=== PATIENT | female | born 1960 | race Caucasian/White ===

== ENCOUNTER → 2022-04-12 | Day surgery (SDC) | payer BC ==
--- NOTE | 2022-04-12 12:39 | RAD REPORT ---
EXAM DESCRIPTION: US - Breast Core BX w/US Guidance - 04/12/2022 10:34 am CLINICAL HISTORY: Right breast mass COMPARISON: 04/08/2022 TECHNIQUE: The risks, benefits alternatives to the procedure were explained to the patient and infor med consent obtained. Skin and subcutaneous tissues anesthetized with lidocaine. Under sonographic guidance, 3 x 14 gauge vacuum assisted core biopsies of the mass within the right b reast obtained. 2 centimeter specimens taken. Tissue given to pathology. Subsequently a localizing clip was placed into the mass. Patient experienced no immediate complication IMPRESSION: Vacuum assisted core biopsies of the right breast mass
--- NOTE | 2022-04-12 12:40 | RAD REPORT ---
EXAM DESCRIPTION: US - Biopsy Lymph Node - 04/12/2022 10:48 am CLINICAL HISTORY: RT AXILLA MASS COMPARISON: No comparisons FINDINGS: Preoperative diagnosis: Enlarged right axillary lymph node. Post operative diagnosis: Same. Conscious Sedation: None Fluoroscopy time: None Contrast used: None Estimated blood loss: Minimal Specimens:3x 18 gauge specimens obtained. IMPRESSION: Technically successful ultrasound-guided core biopsy of an enlarged right axillary lymph node.
== END ==
LOC: DS 08:00
PROVIDERS: ATTEND Surgery
DX: C50.411 Malignant neoplasm of upper-outer quadrant of right female breast (principal); N63.31 Unspecified lump in axillary tail of the right breast; Z17.0 Estrogen receptor positive status [ER+]
CPT/HCPCS: 19083; 38505; 76942; 88305

== ENCOUNTER 2022-04-24 05:57 | Day surgery (SDC) | payer BC ==
[2022-04-23 09:44] LABS: Absolute Lymphocytes (CBC) 2.9 K/uL (0.7-4.9); Hematocrit 40.6 % (36.0-45.0); Lymphocytes % 44.5 % (15.3-44.8); MCV 100.1 fL (80-100); MPV 10.6 fL (7.6-11.3); RBC Red Blood Cell Count 4.06 M/uL (3.86-4.86)
[2022-04-23 10:01] LABS: Potassium 4.3 mmol/L (3.5-5.1)
[2022-04-23 10:30] LABS: Blood Morphology Comment NOT SEEN (NOT SEEN); Platelet Estimate ADEQ; Platelets, Giant PRESENT; White Blood Cell Scan OK (OK)
--- NOTE | 2022-04-23 12:49 | EKG ---
Test Date: 2022-04-23 Test Time: 08:37:24 Supervisor Payroll: KEENAN MEASUREMENT RESULTS: Intervals: Rate: 48 MN: 156 QRSD: 84 QT: 426 QTc: 380 [place]: P: 81 MN: 156 QRS: 85 T: 80 INTERPRETIVE STATEMENTS: Marked sinus bradycardia Septal infarct, age undetermined Abnormal ECG No previous ECG available for comparison Electronically Signed On 04-23-22 12:47:48 REIMBURSEMENT DIRECTOR by Wesley Gregorio
[2022-04-24] MEDS ORDERED: CEFAZOLIN SODIUM 1 GM/VIAL ONE (06:14)
[2022-04-24] MEDS ORDERED: NA CHLORIDE 0.9% 1,000 ML ONE ×2 (06:15→10:31)
[2022-04-24] MEDS ORDERED: FENTANYL CITR 100 MCG/2 ML ONE ×2 (06:30→08:25)
[2022-04-24] MEDS ORDERED: EPINEPHRINE/PF 1 MG/ML AMP ONE (06:30)
[2022-04-24] MEDS ORDERED: propofoL 200 MG/20 ML VIAL IV ONE ×2 (06:30→08:24)
[2022-04-24] MEDS ORDERED: BUPIVACAINE 0.25% PF 10 ML VIAL ONE (06:30)
[2022-04-24] MEDS ORDERED: LIDOCAINE 1% MPF 5 ML VIAL ONE (06:30)
[2022-04-24] MEDS ORDERED: dexAMETHasone 10 MG/ML VIAL ONE (06:30)
[2022-04-24] MEDS ORDERED: ROCURONIUM 50 MG/5 ML VIAL IV ONE (08:25)
[2022-04-24] MEDS ORDERED: MIDAZOLAM HCL 2 MG/2 ML INJ ONE (08:25)
[2022-04-24] MEDS ORDERED: LIDOCAINE 2% MPF 5 ML VIAL ONE (08:27)
[2022-04-24] MEDS ORDERED: ONDANSETRON 4 MG/2 ML VIAL ONE ×2 (08:27→11:09)
[2022-04-24] MEDS: METHYLENE BLUE 0.5% 10 ML AMP ONE ×2 (09:00→09:14)
[2022-04-24] MEDS ORDERED: EPHEDRINE SULF 50 MG/ML VIAL ONE (09:09)
[2022-04-24] MEDS ORDERED: Mastisol Adhesive Liq ONE (10:33)
[2022-04-24] MEDS ORDERED: HYDROCODONE/APAP 7.5/325 MG TAB PO PRN (10:38)
[2022-04-24] MEDS ORDERED: KETOROLAC 30 MG/ML INJ ONE (10:45)
[2022-04-24] MEDS: HYDROMORPHONE HCL 1 MG/ML INJ ONE ×2 (11:20→11:25)
[2022-04-24] MEDS ORDERED: HYDROMORPHONE HCL 1 MG/ML INJ ONE (11:30)
[2022-04-24] MEDS ORDERED: HYDROCODONE/APAP 7.5/325 MG TAB ONE (12:10)
[2022-04-24 12:12] VITALS: BP 115/62; TEMP 97.4; O2SAT 97
--- NOTE | 2022-04-24 12:13 | OP ---
Date of Procedure: 04/24/2022 Surgeon: José Duffy MD Barge Worker: TABATHA Rodríguez. Preoperative Diagnosis: Right breast cancer. Postoperative Diagnosis: Right breast cancer. Procedures: [place] node biopsy, right mastectomy, and axillary dissection on the right side. Estimated Blood Loss: Minimal. Specimen: [place] node, which was positive x2. The right breast margins were free for any carcinom a. Findings: As above. Anesthesia: General. Complications: None. Disposition: The patient tolerated the procedure in stable condition and taken to Recovery in good g eneral condition Procedure In Detail: The patient was brought to the OR and placed in supine position. General anest hesia begun. The patient had methylene blue injected around the nipple-areolar complex and the breas t massaged for approximately 5 minutes. Then, the patient was prepped and draped in the usual steril e fashion. Then, the counter device was utilized to isolate the sentinel node in the right axilla. All the counts were recorded in the medical record. A 3 cm incision was made over the highest point and then the subcutaneous tissue divided and deep to the subcutaneous tissue, a blue lymph node and a nother hard lymph node identified, excised. 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 While the frozen section was being done, the ellipse of skin to include the nipple-areolar complex and palpable mass i nto the specimen of the right breast was made with a 15 blade. Cautery was used to divide the subcut aneous tissue. Then, flaps were created superiorly to the clavicle, inferiorly to the insertion of t he rectus abdominis muscle, medially to the sternal border, laterally to the anterior border of the l atissimus dorsi muscle and then all breast tissue. Of note, the pectoralis fascia was removed and se nt to pathology after being appropriately labeled and frozen section for margin check revealed there was no evidence of tumor anywhere near the margin. Subsequently, the entire wound was irrigated. Bl eeding controlled with cautery. Axillary dissection was done. Thoracodorsal and long thoracic neuro vascular bundle identified and axillary vein identified, and all the lymphatic tissue in that region was removed. Vascular clips were used as needed, bleeding controlled cautery, and then 2 Eduardo-Pra tt drains were placed after the wound was irrigated and bleeding was clear. One [address] d in the axilla, 1 underneath the flap, secured with 3-0 nylon, and then 2-0 chromic and 0 chromic us ed to approximate the subcutaneous tissue and close the skin. Sterile dressing applied. The patient was awakened and taken to recovery room in good general condition. JHON/ELIZABETH Voice ID: [id number] Report ID: [id number]
== END 2022-04-24 12:55 | disposition home or self-care (01) ==
LOC: OR 05:57
PROVIDERS: ATTEND Surgery
PROC: 07B50ZX Excision of Right Axillary Lymphatic, Open Approach, Diagnostic (ICD-10-PCS; 2022-04-24)
PROC: 0HTT0ZZ Resection of Right Breast, Open Approach (ICD-10-PCS; principal; 2022-04-24 08:00)
DX: C50.911 Malignant neoplasm of unspecified site of right female breast (principal); C77.3 Secondary and unspecified malignant neoplasm of axilla and upper limb lymph nodes; I10 Essential (primary) hypertension; E11.9 Type 2 diabetes mellitus without complications; F17.210 Nicotine dependence, cigarettes, uncomplicated; E78.00 Pure hypercholesterolemia, unspecified
CPT/HCPCS: 93005; 85025; 80048; 36415; 82947 ×2; 88307 ×2; 88333; 19307; J2704 ×2; J0171; J2001 ×2; J3010 ×2; J1100; J1170; J7030 ×2; J2405 ×2; J0690; 88331; 88332; J2250

== ENCOUNTER 2022-10-14 07:53 | Day surgery (SDC) | payer BC ==
[2022-10-14] MEDS: NA CHLORIDE 0.9% 1,000 ML ONE ×2 (08:29→09:31)
[2022-10-14] MEDS ORDERED: INSULIN -REGULAR HUMAN 50 UNIT/0.5 ML ML ONE (08:51)
[2022-10-14] MEDS: CEFAZOLIN SODIUM 1 GM/VIAL ONE ×2 (09:29→09:55)
[2022-10-14] MEDS: BUPIVACAINE 0.5% PF 10 ML VIAL ONE ×3 (09:30→10:12)
[2022-10-14] MEDS ORDERED: HYDROCODONE/APAP 7.5/325 MG TAB PO PRN (10:25)
--- NOTE | 2022-10-14 10:25 | P.OP ---
Date of Service: 10/14/22 Preop diagnosis: Right breast cancer, status post left chest Port-A-Cath placement Postop diagnosis: Same Procedure performed: Removal of left chest Port-A-Cath device Surgeon: José Duffy MD Gis Software Engineer: Meena MAYS Estimated blood loss: Minimal Specimen: Port-A-Cath device Findings: As above Anesthesia: MAC Complications: None Drains: None Fluids and blood products: Nonapplicable Disposition: Recovery room Operative note: Patient brought to the OR and placed in the supine position. MAC anesthesia begun. Patient prepped and draped in the usual sterile fashion. Lidocaine 1% infiltrated locally. 15 blade used to make a 3 cm incision over the Port-A-Cath device. Port-A-Cath device dissected with sharp and blunt dissection. We controlled cautery. The port and the entire catheter removed and sent to pathology for identification. Wound irrigated and bleeding controlled with cautery. 3-0 chromic used to approximate subcutaneous tissue and close skin. Sterile dressing applied. Patient awakened and taken recovery room in good general condition. CC: Dr. Esquivel's office
[2022-10-14] MEDS ORDERED: HYDROCODONE/APAP 7.5/325 MG TAB ONE (11:03)
[2022-10-14 13:22] VITALS: BP 122/53; TEMP 98; O2SAT 98
== END 2022-10-14 11:35 | disposition home or self-care (01) ==
LOC: OR 07:53
PROVIDERS: ATTEND Surgery
PROC: 0JPT0WZ Removal of Totally Implantable Vascular Access Device from Trunk Subcutaneous Tissue and Fascia, Open Approach (ICD-10-PCS; principal; 2022-10-14 10:00)
DX: Z45.2 Encounter for adjustment and management of vascular access device (principal); C50.911 Malignant neoplasm of unspecified site of right female breast
CPT/HCPCS: 82947 ×3; 88300; 36590; J1815; J7030; J0690